=== PATIENT | female | born 1950 | race African-American/Black ===

== ENCOUNTER 2017-12-05 17:08 | Inpatient (IN) | payer MEDICARE, MEDICAID ==
[~2017-12-05] VITALS: Ht 165.1 cm; Wt 111.1 kg
[~2017-12-05 17:08] MED LIST: CYCLOBENZAPRINE10 MG ORAL; TYLENOL EXTRA500 MG ORAL
[2017-12-05] MEDS ORDERED: AMLODIPINE BESY10 MG ORAL (17:14)
[2017-12-05] MEDS ORDERED: METOPROLOL TART25 MG ORAL (17:14)
[2017-12-05] MEDS ORDERED: DIOVAN320 MG ORAL (17:14)
[2017-12-05] MEDS ORDERED: Morphine Sulfate 4mg/ml Inj IVP ONE (17:45)
[2017-12-05 17:47] VITALS: BP 144/77
[2017-12-05 18:06] LABS: BASOPHILS % (AUTO) 0.9 % (0.0-2.0); HEMATOCRIT 41.6 % (37.0-47.0); HEMOGLOBIN 14.5 G/DL (12.0-16.0); LYMPHOCYTES % (AUTO) 17.2 % (20.0-45.0); MEAN CORPUSCULAR VOLUME 90 FL (80-99); MONOCYTES % (AUTO) 7.8 % (1.0-10.0); NEUTROPHILS % (AUTO) 73.1 % (45.0-75.0); PLATELET COUNT 350 K/UL (150-450); RED BLOOD COUNT 4.62 M/UL (4.20-5.40); RED CELL DISTRIBUTION WIDTH 10.8 % (11.6-14.8); WHITE BLOOD COUNT 9.8 K/UL (4.8-10.8)
[2017-12-05 18:16] LABS: ANION GAP 6 mmol/L (5-15); BLOOD UREA NITROGEN 12 mg/dL (7-18); CALCIUM 9.6 MG/DL (8.5-10.1); CARBON DIOXIDE 30 MMOL/L (21-32); CHLORIDE 105 MMOL/L (98-107); CREATININE 0.9 MG/DL (0.55-1.30); POTASSIUM 4.2 MMOL/L (3.5-5.1); SODIUM 141 MMOL/L (136-145)
[2017-12-05 18:30] LABS: ALANINE AMINOTRANSFERASE 19 U/L (12-78); ALBUMIN 3.3 G/DL (3.4-5.0); ALBUMIN/GLOBULIN RATIO 0.8 (1.0-2.7); ALKALINE PHOSPHATASE 124 U/L (46-116); ASPARTATE AMINO TRANSFERASE 18 U/L (15-37); BILIRUBIN,TOTAL 0.4 MG/DL (0.2-1.0); CKMB 0.5 NG/ML (0.0-3.6); CREATINE KINASE 71 U/L (26-308); PHOSPHORUS 4.5 MG/DL (2.5-4.9)
[2017-12-05 19:24] LABS: APPEARANCE,URINE CLEAR; BILIRUBIN, URINE NEGATIVE (NEGATIVE); COLOR,URINE YELLOW; GLUCOSE, URINE (UA) NEGATIVE (NEGATIVE); KETONES,URINE NEGATIVE (NEGATIVE); LEUKOCYTE ESTERASE ,URINE 1+ (NEGATIVE); NITRITE,URINE NEGATIVE (NEGATIVE); PH,URINE 5 (4.5-8.0); PROTEIN,URINE 1+ (NEGATIVE); UROBILINOGEN,URINE NORMAL MG/DL (0.0-1.0)
[2017-12-05] MEDS ORDERED: Aspirin Baby 81mg ORAL ONE (19:30)
[2017-12-05 19:40] VITALS: BP 147/62
[2017-12-05] MEDS ORDERED: cefTRIAXone 1 GM in NS 55 ML IVPB ONE (19:45)
[2017-12-05] MEDS ORDERED: cefTRIAXone 1 GM in D5W 55 ML IVPB ONE (19:45)
--- NOTE | 2017-12-05 19:54 | Emergency Room Report ---
History of Present Illness General Chief Complaint: Chest Pain Source: Patient Present Illness HPI Patient is a 67-year-old female who presented after increased left sided chest discomfort. Patient had the gradual onset of symptoms. This was intermittent in nature. Patient's pain the was noted be sharp. This was worse with movements. Patient had prior history of obesity as well as hypertension. She denies prior cardiac history. The patient reportedly takes multiple medications for blood pressure Allergies: Coded Allergies: ADHESIVE TAPE (Verified Allergy, Unknown, 11/03/15) ALMOND (Verified Allergy, Unknown, 11/03/15) ATENOLOL (Verified Allergy, Unknown, 11/03/15) BANANA (Verified Allergy, Unknown, 11/03/15) Lettuce (Verified Allergy, Unknown, 11/03/15) Tuna (Verified Allergy, Unknown, 11/03/15) Patient History Past Medical History: see triage record Reviewed Nursing Documentation: PMH: Agreed; PSxH: Agreed Nursing Documentation-PMH Hx Hypertension: Yes Hx Asthma: Yes Review of Systems All Other Systems: negative except mentioned in HPI Physical Exam Vital Signs Date Time Temp Pulse Resp B/P (MAP) Pulse Ox O2 Delivery O2 Flow Rate FiO2 12/05/17 17:10 98.2 84 20 157/84 99 Room Air 98.2 Sp02 EP Interpretation: reviewed, normal General Appearance: normal inspection, well appearing, no apparent distress, alert, obese, Chronically Ill Head: atraumatic ENT: normal ENT inspection, hearing grossly normal, normal voice Neck: normal inspection, full range of motion, supple, no bony tend Respiratory: normal inspection, lungs clear, normal breath sounds, no respiratory distress, no retraction, no wheezing Cardiovascular #1: regular rate, rhythm, no edema Gastrointestinal: normal inspection, normal bowel sounds, non tender, soft, no guarding, no hernia Genitourinary: no CVA tenderness Musculoskeletal: normal inspection, back normal, normal range of motion Neurologic: normal inspection, alert, oriented x3, responsive, warp tier III-XII nml as tested, speech normal Psychiatric: normal inspection, judgement/insight normal, mood/affect normal Skin: normal inspection, normal color, no rash Medical Decision Making Diagnostic Impression: Primary Impression: Chest pain ER Course She presented for chest pain. Differential diagnosis included but was not limited to acute coronary syndrome, pulmonary embolism, rib fracture, pneumonia , aortic dissection, shingles, pneumothorax, aortic dissection, esophageal rupture, pericarditis. Because of complexity of patient's case laboratory testing and imaging studies were ordered. The patient was given IV pain medications. She was additionally given aspirin. EKG interpreted by me showed normal sinus rhythm with a rate of [address] or T wave changes. Labs Test 12/05/17 17:38 12/05/17 17:55 12/05/17 19:00 White Blood Count 9.8 K/UL (4.8-10.8) Red Blood Count 4.62 M/UL (4.20-5.40) Hemoglobin 14.5 G/DL (12.0-16.0) Hematocrit 41.6 % (37.0-47.0) Mean Corpuscular Volume 90 FL (80-99) Mean Corpuscular Hemoglobin 31.3 PG (27.0-31.0) Mean Corpuscular Hemoglobin Concent 34.8 G/DL (32.0-36.0) Red Cell Distribution Width 10.8 % (11.6-14.8) Platelet Count 350 K/UL (150-450) Mean Platelet Volume 5.8 FL (6.5-10.1) Neutrophils (%) (Auto) 73.1 % (45.0-75.0) Lymphocytes (%) (Auto) 17.2 % (20.0-45.0) Monocytes (%) (Auto) 7.8 % (1.0-10.0) Eosinophils (%) (Auto) 1.0 % (0.0-3.0) Basophils (%) (Auto) 0.9 % (0.0-2.0) Sodium Level 141 MMOL/L (136-145) Potassium Level 4.2 MMOL/L (3.5-5.1) Chloride Level 105 MMOL/L (98-107) Carbon Dioxide Level 30 MMOL/L (21-32) Anion Gap 6 mmol/L (5-15) Blood Urea Nitrogen 12 mg/dL (7-18) Creatinine 0.9 MG/DL (0.55-1.30) Estimat Glomerular Filtration Rate > 60 mL/min (>60) Glucose Level 120 MG/DL (74-106) Calcium Level 9.6 MG/DL (8.5-10.1) Phosphorus Level 4.5 MG/DL (2.5-4.9) Magnesium Level 2.2 MG/DL (1.8-2.4) Total Bilirubin 0.4 MG/DL (0.2-1.0) Aspartate Amino Transf (AST/SGOT) 18 U/L (15-37) Alanine Aminotransferase (ALT/SGPT) 19 U/L (12-78) Alkaline Phosphatase 124 U/L (46-116) Total Creatine Kinase 71 U/L (26-308) Creatine Kinase MB 0.5 NG/ML (0.0-3.6) Creatine Kinase MB Relative Index 0.7 Troponin I 0.000 ng/mL (0.000-0.056) Total Protein 7.5 G/DL (6.4-8.2) Albumin 3.3 G/DL (3.4-5.0) Globulin 4.2 g/dL Albumin/Globulin Ratio 0.8 (1.0-2.7) Lactic Acid Level 0.90 mmol/L (0.66-2.22) Urine Color Yellow Urine Appearance Clear Urine pH 5 (4.5-8.0) Urine Specific [place] 1.025 (1.005-1.035) Urine Protein 1+ (NEGATIVE) Urine Glucose (UA) Negative (NEGATIVE) Urine Ketones Negative (NEGATIVE) Urine Occult Blood 2+ (NEGATIVE) Urine Nitrite Negative (NEGATIVE) Urine Bilirubin Negative (NEGATIVE) Urine Urobilinogen Normal MG/DL (0.0-1.0) Urine Leukocyte Esterase 1+ (NEGATIVE) Urine RBC 5-10 /HPF (0 - 2) Urine WBC 10-15 /HPF (0 - 2) Urine Squamous Epithelial Cells Moderate /LPF (NONE/OCC) Urine Amorphous Sediment Few /LPF (NONE) Urine Bacteria Moderate /HPF (NONE) Urine Yeast Few /HPF (NONE) Last Vital Signs Date Time Temp Pulse Resp B/P (MAP) Pulse Ox O2 Delivery O2 Flow Rate FiO2 12/05/17 19:40 97.5 78 16 147/62 98 Room Air 97.5 Status: unchanged Disposition: ADMITTED INPATIENT Condition: Serious Referrals: NON PHYSICIAN (PCP) Tulio Gay December 05, 2017 19:54
[2017-12-05 22:13] VITALS: BP 155/61
[2017-12-06] VITALS: BP 144/73
[2017-12-06] MEDS: Metoprolol 25mg tab ORAL SCH ×3 (00:01→20:58)
[2017-12-06 04:00] VITALS: BP 121/64
[2017-12-06 06:22] LABS: ALANINE AMINOTRANSFERASE 17 U/L (12-78); ALKALINE PHOSPHATASE 104 U/L (46-116); ANION GAP 7 mmol/L (5-15); ASPARTATE AMINO TRANSFERASE 13 U/L (15-37); BILIRUBIN,TOTAL 0.5 MG/DL (0.2-1.0); BLOOD UREA NITROGEN 13 mg/dL (7-18); CALCIUM 8.7 MG/DL (8.5-10.1); CARBON DIOXIDE 27 MMOL/L (21-32); CHLORIDE 107 MMOL/L (98-107); CHOLESTEROL 201 MG/DL (< 200); CREATININE 0.7 MG/DL (0.55-1.30); HDL CHOLESTEROL 52 MG/DL (40-60); POTASSIUM 3.6 MMOL/L (3.5-5.1); SODIUM 141 MMOL/L (136-145); TRIGLYCERIDES 82 MG/DL (30-150)
--- NOTE | 2017-12-06 07:00 | History and Physical Report ---
DATE OF ADMISSION: 12/05/2017 CARDIOLOGY EVALUATION CONSULTING PHYSICIAN: Rafal Hansen M.D. REQUESTING PHYSICIAN: Erlin Yonug M.D. REASON FOR ADMISSION: Chest pain. HISTORY OF PRESENT ILLNESS: This 67-year-old female, who has had several weeks of progressive left-sided chest discomfort, most prominent over the past two days, associated at times with activity and certain movements. She feels the pain is actually worse now with her trying to move her torso out of bed. The patient has not had any prior heart attack, but did have a stress test about 10 years ago that was negative. Her coronary risk factors include hypertension. ALLERGIES: Include atenolol, however, she is able to take metoprolol. PAST MEDICAL HISTORY: Hypertension and asthma. SOCIAL HISTORY: Negative for smoking, alcohol, or substance abuse. FAMILY HISTORY: Noncontributory. REVIEW OF SYSTEMS: No fevers or chills. No cough or sputum production. No change in bowel habits. No history of seizure or stroke. No known history of diabetes or thyroid impairment. No history of blood clots in the legs. PHYSICAL EXAMINATION: VITAL SIGNS: Afebrile, blood pressure 157/84, pulse 84, and respirations 20. HEENT: Conjunctivae are pink. Sclerae are anicteric. Oropharynx clear. Mucous membranes moist. NECK: Supple. Jugular venous pressure normal. Carotid upstrokes without delay. No bruits. LUNGS: Clear. CARDIAC: Regular rhythm and rate. Normal S1, S2 with a fourth heart sound. CHEST WALL: Without focal tenderness. No breast masses. ABDOMEN: Soft and nontender. EXTREMITIES: Good pulses. No edema. NEUROLOGIC: Nonfocal. LABORATORY AND DIAGNOSTIC DATA: Troponin #1 is 0. Urinalysis with 10 to 15 white cells. Sodium is 141, potassium 4.2, bicarbonate 30, BUN 12, creatinine 0.9, glucose 120, and magnesium 2.2. White count is 9.8 and hemoglobin 14.5. EKG with sinus rhythm at 74 beats per minute with no acute ST-T wave changes. Chest x-ray with no acute process by report. IMPRESSION: 1. Possible acute coronary syndrome. 2. Hypertensive heart disease with elevated blood pressure. 3. Urinary tract infection. PLAN: 1. Cardiac monitoring. 2. Oral aspirin. 3. Optimize antihypertensive regimen and discontinue beta blockade. 4. Check lipid panel, serial troponin levels, echocardiogram and followed by noninvasive assessment of coronary flow reserve. Rafal Hansen M.D. DR: SAUL JOB#: [id number] CC: IKER
[2017-12-06 08:00] VITALS: BP_SYST 92; BP_DIAS 79; BP_DIAS 99
[2017-12-06] MEDS: Losartan 50mg tab ORAL SCH (08:48)
[2017-12-06] MEDS: Aspirin Baby 81mg ORAL SCH (08:50)
[2017-12-06] MEDS ORDERED: Lexiscan 0.4mg/5ml syringe IV ONE (09:00)
--- NOTE | 2017-12-06 09:52 | Diagnostic Imaging Report ---
Indication: Dyspnea Comparison: None A single view chest radiograph was obtained. Findings: No definite infiltrate or pulmonary vascular congestion identified. The heart is enlarged. The aorta is mildly enlarged consistent with atherosclerotic vascular disease. The bones are osteopenic. Impression: No acute disease
[2017-12-06 12:00] VITALS: BP 123/58
--- NOTE | 2017-12-06 15:19 | Diagnostic Imaging Report ---
Indication: chest pain Technique: The study was conducted under the supervision of a [employer] worker. Dolbutamine administration followed by intravenous administration of 31.6 mCi of technetium 99m Myoview was performed. Three plane SPECT imaging of the heart was then performed. A resting study was performed as part of the one-day protocol with 11 mCi of technetium 99m myoview injected intravenously at that time. Three plane SPECT imaging of the heart was obtained. Comparison: None Clinical data: Maximum predicted heart rate: 155. 85% maximum predicted heart rate: 132 Resting heart rate: 60. Peak heart rate: 92. (Target not reached) Resting BP: 143/78. Peak BP: 151/69. Length of infusion: 9 minutes. 1. Clinical response: Non ischemic 2. Electrocardiographic response: Non ischemic Findings: The myocardial perfusion scan demonstrates probable mild fixed perfusion defects that appear nontransmural in the anterior septal segment and inferolateral segment. Correlate for myocardial infarct. There is no evidence of reversible segments to suggest ischemia. LVEF estimated at 69%. IMPRESSION: No evidence of myocardial ischemia. Possible nontransmural infarction involving anteroseptal region and inferolateral region. Correlate clinically.
[2017-12-06 16:00] VITALS: BP 119/65
[2017-12-06 20:00] VITALS: BP 127/68
[2017-12-07] VITALS: BP 131/59
--- NOTE | 2017-12-07 02:45 | Progress Note ---
DATE: 12/06/2017 CARDIOLOGY PROGRESS NOTE SUBJECTIVE: The patient has no chest pain. No shortness of breath. A dobutamine myocardial perfusion scan is planned for today. The patient had a 2D echocardiogram revealing normal ejection fraction and wall motion. OBJECTIVE: VITAL SIGNS: Blood pressure 119/65, pulse 57, and respiratory rate 20. LUNGS: Clear. CARDIAC: Regular. Normal S1 and S2. ABDOMEN: Soft. EXTREMITIES: No edema. LABORATORY DATA: White count 9.8 and hemoglobin 14.5. Total cholesterol 200 and LDL 128. Chemistry panel within normal limits. Troponins are negative. IMPRESSION: 1. Acute coronary syndrome. 2. Hypertensive heart disease. 3. Mild protein-calorie malnutrition. 4. Mild hyperlipidemia. 5. History of asthma. 6. Asymptomatic bradycardia secondary to beta-andreia therapy. PLAN: 1. Continue anti-platelet therapy. 2. Add statin drugs. 3. Optimize antihypertensives. 4. Final recommendations following results of myocardial perfusion scan. Rafal Hansen M.D. DR: SANGEETA JOB#: [id number] CC:
[2017-12-07 04:04] VITALS: BP 120/57
[2017-12-07 08:00] VITALS: BP 131/68
[2017-12-07] MEDS: Aspirin Baby 81mg ORAL SCH (09:27)
[2017-12-07] MEDS: Metoprolol 25mg tab ORAL SCH (09:27)
[2017-12-07] MEDS: Losartan 50mg tab ORAL SCH (09:28)
[2017-12-07 12:00] VITALS: BP 110/64
[2017-12-07] MEDS ORDERED: Docusate 100mg cap ORAL SCH (13:30)
[2017-12-07] MEDS ORDERED: Milk of Magnesia 30ml Ud ORAL ONE (13:30)
--- NOTE | 2017-12-07 15:22 | Cardiology Report ---
APPROVED REPORT EKG Measurement Heart [id number] Normal sinus rhythm Moderate voltage criteria for LVH, may be normal variant Borderline ECG
--- NOTE | 2017-12-07 20:45 | Progress Note ---
DATE: 12/07/2017 INTERNAL MEDICINE CARDIOLOGY PROGRESS NOTE SUBJECTIVE: The patient seen and evaluated. She has no chest pain. The myocardial perfusion scan done yesterday reveals some artifact. No signs of ischemia, possible scarring anteriorly, however, the patient failed to achieve a target heart rate due to significant beta-blockade and the study is overall nondiagnostic. OBJECTIVE: VITAL SIGNS: Blood pressure 110/64, pulse 63, and respiratory rate 19. NECK: Supple. LUNGS: Clear. CARDIAC: Regular. Normal S1 and S2 with no murmur. ABDOMEN: Soft. EXTREMITIES: There is no edema. LABORATORY AND DIAGNOSTIC DATA: No new laboratory studies. IMPRESSION AND PLAN: Low likelihood for flow-limiting coronary artery disease. Chest pain does not appear to be anginal. The patient's blood pressure is well controlled. She has mild protein-calorie malnutrition. She has dyslipidemia and has been started on statin therapy and she will be continued on anti-platelet prophylaxis. Outpatient followup has been arranged and discharge plans initiated. Rafal Hansen M.D. DR: LUCINA JOB#: [id number] CC:
--- NOTE | 2017-12-10 12:02 | Discharge Summary ---
Discharge Summary Discharge Summary Discharge Summary DATE OF ADMISSION: 12/05/2017 DATE OF DISCHARGE: 12/07/2017 REASON FOR ADMISSION: 67 years old female with past medical history of hypertension and obesity presented to emergency department with increased left-sided chest discomfort. Patient reported gradual onset of symptoms, intermittent in nature. Patient described pain as a sharp, and worse with movement. Patient denied any cardiac history. Upon evaluation in emergency department, vital signs were stable. Troponin negative. ECG revealed normal sinus rhythm, no acute ischemic changes. Chest x-ray revealed no acute cardiopulmonary pathology. Urinalysis with evidence of UTI. Stable chemistry and renal parameters. No leukocytosis, stable hemoglobin and hematocrit. Patient was admitted with chest pain , rule out acute coronary syndrome, hypertensive heart disease, urinary tract infection HOSPITAL COURSE: Patient admitted to telemetry floor. Serial troponin were negative. EKG revealed no acute ischemic changes. Patient was ruled out for acute myocardial infarction. Patient started on antiplatelet prophylaxis with aspirin. Lipid panel revealed elevated LDL -128 and elevated total cholesterol -201. Patient started on statin and educated on low-fat low-cholesterol cardiac diet. Blood pressure was managed with calcium channel andreia, beta andreia and ARB. Blood pressure was controlled with current regimen. Patient exhibited sinus bradycardia on telemetry , however patient was asymptomatic. Sinus bradycardia likely due to beta blockage. Upon discharge heart rate was stable. Echocardiogram revealed preserved ejection fraction 65-70% and right ventricular systolic pressure of 29. Myocardial perfusion stress test revealed no evidence of myocardial ischemia with calculated ejection fraction of 69%. Patient started on empiric antibiotic. Urine culture revealed Escherichia coli with colony counts 80,000-90,000. Patient had no urinary complaints. Patient status post treatment for UTI while in the hospital. Antibiotics stopped. GI prophylaxis provided, bowel regimen instituted. Supplemental oxygen and pulmonary toilet were on standby as needed. Pulse oximetry was stable in room air. No signs of respiratory distress, no signs of asthma exacerbation. Symptomatic treatment provided. Per acoustic engineer, low likelihood for flow-limiting coronary artery disease. Chest pain did not appear to be anginal. Outpatient follow up had been arranged. Patient clinically improved and was stable for discharge. No further complaint of chest pain or shortness of breath, blood pressure controlled. FINAL DIAGNOSES: Hypertensive heart disease urinary tract infection with Escherichia coli mild hyperlipidemia mild protein calorie malnutrition asymptomatic bradycardia(secondary to beta blockage) History of asthma DISCHARGE MEDICATIONS: See Medication Reconciliation list. DISCHARGE INSTRUCTIONS: Patient was discharged home. Follow up with primary care provider in one week. I have been assigned to dictate discharge summary for this account. I was not involved in the patient's management. Sana Morrison NP ([place]) December 10, 2017 12:02
--- NOTE | 2017-12-11 09:47 | Cardiology Report ---
APPROVED REPORT EXAM: Two-dimensional and M-mode echocardiogram with Doppler and color Doppler. INDICATION CAD M-Mode DIMENSIONS IVSd1.5 (0.7-1.1cm)Left Atrium (MM)3.4 (1.6-4.0cm) LVDd5.6 (3.5-5.6cm)Aortic Root3.8 (2.0-3.7cm) PWd1.7 (0.7-1.1cm)Aortic Cusp Exc.1.7 (1.5-2.0cm) IVSs2.2 cm LVDs3.4 (2.5-4.0cm) PWs1.8 cm Technically difficult study due to parasternal acoustical windows. Mild global left ventricular hypokinesis . Left ventricular ejection fraction estimated to be 60-65 %. Mild left ventricular hypertrophy by 2-D. No evidence of pericardial effusion. All other cardiac chamber sizes are within normal limits. Focal aortic valve sclerosis with adequate cusp excursion. Mildly Thickened mitral valve leaflets with normal excursion. Mildly Mitral annulus and aortic root calcification. Normal pulmonic valve structure. Normal tricuspid valve structure. IVC at size 2.0 m with physiologic collapse. A color flow and spectral Doppler study was performed and revealed: No aortic regurgitation. Trace mitral regurgitation. Mitral diastolic velocities suggest reduced left ventricular relaxation c/w mild LV diastolic dysfunction (Grade I ). Trace tricuspid regurgitation. Tricuspid systolic velocities suggests peak right ventricular systolic pressure of 18mmHg. No Pulmonic regurgitation present.
== END 2017-12-07 16:55 | disposition home or self-care (01) | DRG 305 ==
LOC: EMR 18:40 → 2E 20:24 → EDBEDREQ 21:09 → 2E 22:13
DX: I11.9 Hypertensive heart disease without heart failure (principal); E44.1 Mild protein-calorie malnutrition; N39.0 Urinary tract infection, site not specified; E78.5 Hyperlipidemia, unspecified; Z88.8 Allergy status to other drugs, medicaments and biological substances; J45.909 Unspecified asthma, uncomplicated; B96.20 Unspecified Escherichia coli [E. coli] as the cause of diseases classified elsewhere; R00.1 Bradycardia, unspecified; T44.7X5A Adverse effect of beta-adrenoreceptor antagonists, initial encounter
CPT/HCPCS: 36415; 71045; 78452; 80053; 80061; 81003; 82550; 82553; 83605; 83735; 84100; 84443; 84484; 85025; 87040; 87086; 87181; 93005; 93017; 93306; 99285; J2785

== ENCOUNTER 2018-06-14 11:27 | Outpatient (CLI) | payer MEDICARE, MEDICAID ==
[~2018-06-14 11:27] MED LIST changes: +AMLODIPINE BESY10 MG ORAL; +DIOVAN320 MG ORAL; +METOPROLOL TART25 MG ORAL
== END 2018-06-14 13:27 | disposition home or self-care (01) ==
LOC: CAT 11:27
DX: T14.90XA Injury, unspecified, initial encounter (principal)
CPT/HCPCS: 70450